=== PATIENT | female | born 1985 | race Caucasian/White ===

== ENCOUNTER 2018-04-16 08:39 | Emergency (ER) | payer SELFPAY ==
[2018-04-16 09:06] LABS: #Eosinphils 0.2 thou/uL (0.0-0.7); #Monocytes 0.6 thou/uL (0.11-0.59); #Neutrophils 3.4 thou/uL (1.40-6.50); %Basophils 0.6 % (0.0-1.0); %Eosinophils 2.5 % (0.0-10.0); %Lymphocytes 31.5 % (21.0-51.0); %Monocytes 10.2 % (0.0-10.0); %Neutrophils 55.2 % (42.0-75.0); Hemoglobin 12.2 g/dL (12.0-16.0); Mean Corpuscular HGB CONC 32.7 g/dL (32.0-36.0); Mean Corpuscular Hemoglobin 26.3 pg (27.0-31.0); Mean Corpuscular Volume 80.4 fL (78.0-98.0); Mean Platelet Volume 9.6 fL (7.4-10.4); Platelet Count 168 thou/uL (130-400); RBC Distribution Width 14.6 % (11.5-14.5); Red Blood Cell (RBC) Count 4.62 mill/uL (4.20-5.40); White Blood Cell (WBC) Count 6.2 thou/uL (4.8-10.8)
[2018-04-16 09:25] LABS: Bilirubin Negative (Negative); Blood, Urine Large (Negative); Clarity CLEAR (Clear); Glucose, Urine (Dipstick) Negative (Negative); Leukocyte Negative (Negative); Nitrite Negative (Negative); Protein, Urine (Dipstick) Negative (Neg-Trace); Specific Gravity, Urine 1.004 (1.002-1.036); Urobilinogen 0.2 mg/dL (0.2-1.0); pH, Urine 7.5 (5.0-9.0)
[2018-04-16 09:29] LABS: Bacteria/HPF None Seen HPF (None Seen); Hyaline Casts/LPF 0-3 HYALINE CAST LPF (0-3 Hyaline); Pathc Cast-AUWi Flag 0.43 (0-2.49); Squamous Epithelial 0-3 HPF (0-3); WBC/HPF None Seen HPF (0-3)
--- NOTE | 2018-04-16 10:36 | ULT ---
ULTRASOUND PELVIC ULTRASOUND TRANSVAGINAL DOPPLER DUPLEX: DATE: 04/16/18 HISTORY: Vaginal bleeding in 32-year-old female. TECHNIQUE: Transabdominal transducer used to evaluate intrapelvic contents using the urinary bladder as an acous tic window. Endovaginal transducer used to visualize intrapelvic contents in greater detail. Color fl ow Doppler and Pulsed Doppler spectral waveform analysis of ovaries. FINDINGS: Uterus: 10 x 5 x 5.5 cm. Endometrial stripe: 1.2 cm (12 mm). No evidence of intrauterine gestational sac. Right ovary: Not visualized. Left ovary: 4 x 3 x 4 cm. Uterine leiomyoma (fibroid): None. Blood flow: Demonstrated in left ovary. Ovarian cyst: 2.5 x 2.5 x 2.5 cm round left simple. Free fluid in the cul-de-sac: None. IMPRESSION: 1. No evidence of intrauterine gestation. 2. 12 mm endometrial stripe. 3. 2.5 cm simple left ovarian cyst. 4. Right ovary not visualized. ALESSIA Sanders POS: CECY
[2018-04-17 19:48] LABS: Chlamydia by PCR Not Detected (NotDetected); GC by PCR Not Detected (NotDetected)
== END 2018-04-16 10:44 | disposition home or self-care (01) ==
LOC: ERS 08:39
DX: O20.0 Threatened abortion (principal); Z3A.01 Less than 8 weeks gestation of pregnancy
CPT/HCPCS: 36415; 76856; 81003; 81015; 84702; 85025; 86900; 86901; 87480; 87491; 87510; 87591; 87660

== ENCOUNTER 2018-10-06 20:51 | Inpatient (IN) | payer BC ==
[2018-10-06] MEDS ORDERED: Docusate 100 MG CAP PO PRN (21:12)
[2018-10-06] MEDS ORDERED: NS / Oxytocin 40 units/1000ml 1,000 ML IV PRN (21:12)
[2018-10-06] MEDS ORDERED: Promethazine HCl 25 MG/ML VIAL IM PRN (21:12)
[2018-10-06] MEDS ORDERED: Lidocaine 1% (PF) 30 ML VIAL SC PRN (21:12)
[2018-10-06] MEDS ORDERED: Ibuprofen 800 MG TAB PO PRN (21:12)
[2018-10-06] MEDS ORDERED: Ondansetron PF 4 MG/2 ML Vial IVP PRN (21:12)
[2018-10-06] MEDS ORDERED: Zolpidem Tartrate 5 MG TAB PO PRN (21:12)
[2018-10-06] MEDS ORDERED: Acetaminophen 500 MG TAB PO PRN (21:12)
[2018-10-06] MEDS ORDERED: HYDROcodone/Acetaminophen 5/325 mg Tablet PO PRN ×2 (21:12)
--- NOTE | 2018-10-06 21:21 | PDOC.LDHP ---
Labor and Delivery H&P Chief complaint: other ( demise of twins (both)) HPI: 33 y/o at 16 and 2/7 weeks presents for induction of labor following demise of both twin fetuses, as diagnosed in clinic today. Patient has requested one more ultrasound upon arrival. Due date: 03/21/19 Grav: 4 Para: 2 Abnormal US findings: Yes (No heart tones x2 at 16 weeks) Current medications: pre-pati vitamins Previous surgical history: other (D&C) Social history: none - Physical Exam Vital signs reviewed and normal: yes General: NAD, resting Heart: RRR Lungs: CTAB Abdomen: gravid Extremeties: no edema - Assessment 1. Demise of both twins - 16 weeks - Plan Plan: other (1. U/S confirmation of double demise 2. Cytotec induction of labor)
[2018-10-06 21:32] VITALS: BMI 36.6
--- NOTE | 2018-10-06 22:37 | ULT ---
EXAM: US OB [facility] PROVIDED CLINICAL HISTORY: Suspected demise in twin intrauterine gestation at 16 weeks. Ultrasound exam was performed in [facility] earlier today. COMPARISON: None FINDINGS: Limited sonographic images of the pelvis are obtained. There is evidence of a twin intrauterine gesta tion. No heart tones are detected within either fetus by cardiac Doppler evaluation. Presentation of twin A and twin B transverse with the head to the maternal right. Placenta is located posteriorly. Subjectively, there is a normal amount of amniotic fluid. IMPRESSION: Twin intrauterine gestation with absence of detectable heart tones in either fetus suggesting f etal demise of a twin intrauterine gestation. Dr. Ayala was present during the examination.
[2018-10-06 22:41] LABS: Hemoglobin 11.6 g/dL (12.0-16.0); Mean Corpuscular Hemoglobin 28.5 pg (27.0-31.0); Mean Platelet Volume 9.4 fL (7.4-10.4); Platelet Count 147 thou/uL (130-400); RBC Distribution Width 14.7 % (11.5-14.5); Red Blood Cell (RBC) Count 4.08 mill/uL (4.20-5.40); White Blood Cell (WBC) Count 12.1 thou/uL (4.8-10.8)
[2018-10-06] MEDS: Misoprostol 200 MCG TAB PO SCH (22:44)
[2018-10-06 23:19] LABS: Syphilis Antibody Nonreactive (Nonreactive); Syphilis Antibody Index 0.03 S/CO (<1.00 Non-Reactive)
[2018-10-06 23:23] LABS: HBSAg Index 0.51 S/CO (0-0.99); Hep B Surf Ag Non-Reactive S/CO (NonReactive)
[2018-10-07] MEDS: Misoprostol 200 MCG TAB PO SCH ×4 (02:58→16:25)
[2018-10-07] MEDS: Butorphanol Tartrate 1 MG/ML VIAL SLOW IVP PRN ×2 (03:00→06:39)
[2018-10-07] MEDS: Lactated Ringer's 1,000 ML IV SCH ×3 (07:54→14:20)
[2018-10-07] MEDS ORDERED: Fentanyl 4 mcg/Bup 0.1% Cadd 100 ML ONE ×2 (08:33→15:54)
[2018-10-07] MEDS ORDERED: Bupivacaine 0.5% 10 ML VIAL ONE (08:53)
[2018-10-07] MEDS ORDERED: Promethazine HCl 25 MG/ML VIAL IM PRN ×3 (09:12→22:47)
[2018-10-07] MEDS ORDERED: diphenhydrAMINE 50 MG/ML VIAL IVP PRN (09:12)
[2018-10-07] MEDS ORDERED: Acetaminophen 325 MG TAB PO PRN (09:12)
[2018-10-07] MEDS ORDERED: Ondansetron PF 4 MG/2 ML Vial IVP PRN ×2 (09:12→22:47)
[2018-10-07] MEDS ORDERED: ePHEDrine/0.9% NaCl/PF SYRINGE 50 mg/10 ml SLOW IVP PRN (09:12)
[2018-10-07] MEDS ORDERED: Naloxone HCl 0.4 mg/ml Vial IVP PRN ×2 (09:12)
[2018-10-07] MEDS ORDERED: Lactated Ringer's 500 ML IV PRN (09:12)
[2018-10-07] MEDS ORDERED: Communication Order-Pharmacy FS SCH (09:15)
[2018-10-07] MEDS ORDERED: Fentanyl 4 mcg/Bupivacaine 0.1% Cassette 100 ML EPIDURAL SCH (09:15)
--- NOTE | 2018-10-07 15:27 | PDOC.LDPN ---
Labor & Delivery Progress Note - Subjective Subjective: comfortable, other (epidural is in place and working well) - Objective General: NAD, resting Uterine fundus: non tender Dilation: 1 Other exam findings: SROM has now occured Plan: continue plan of care, other (Continue Cytotec 400mcg q 4 hrs)
[2018-10-07] MEDS ORDERED: Misoprostol 200 MCG TAB ONE (15:49)
[2018-10-07] MEDS ORDERED: Oxytocin 10 UNITS/ML VIAL ONE ×2 (17:21→18:53)
[2018-10-07] MEDS ORDERED: NS w/ Oxytocin 10 units 500 ML ONE (17:21)
[2018-10-07] MEDS ORDERED: Fentanyl 100 MCG/2 ML VIAL ONE (17:47)
--- NOTE | 2018-10-07 19:41 | ULT ---
Ultrasound pelvis 10/07/2018 HISTORY: Status post D & C after intrauterine demise of twin . FINDINGS: The previously demonstrated fetuses on the ultrasound of 10/06/2018 are no longer present. The endometr ial stripe is approximately 20 mm thick. No echogenic focus or hyperemic tissue is visualized. No free fluid within the endometrial cavity. Ovaries are not visualized. Dr. Ayala was present during t he ultrasound. IMPRESSION: No definitive evidence of retained products of conception.
[2018-10-07] MEDS ORDERED: Meperidine HCl/PF 25 MG/ML VIAL ONE (19:42)
[2018-10-07] MEDS ORDERED: HYDROmorphone 2 MG/ML VIAL SLOW IVP PRN (19:53)
[2018-10-07] MEDS ORDERED: Promethazine HCl 25 MG/ML VIAL SLOW IVP PRN (19:53)
[2018-10-07] MEDS ORDERED: Morphine Sulfate 2 MG/ML SYRINGE SLOW IVP PRN (19:53)
[2018-10-07] MEDS ORDERED: Ondansetron HCl/PF 4 MG/2 ML Vial IVP PRN (19:53)
[2018-10-07] MEDS ORDERED: PACU-Morphine 4MG/ML VIAL SLOW IVP PRN (19:53)
[2018-10-07] MEDS ORDERED: Benzocaine-Menthol 82.5 ML CAN TOP PRN (22:47)
[2018-10-07] MEDS ORDERED: Lanolin Ointment 7 GM TUBE TOP PRN (22:47)
[2018-10-07] MEDS ORDERED: diphenhydrAMINE 25 MG CAP PO PRN (22:47)
[2018-10-07] MEDS ORDERED: HYDROcodone/Acetaminophen 5/325 mg Tablet PO PRN ×2 (22:47)
[2018-10-07] MEDS ORDERED: Milk Of Magnesia 30 ML UDCUP PO PRN (22:47)
[2018-10-07] MEDS ORDERED: Preparation H Ointment 28 GM TUBE PR PRN (22:47)
[2018-10-07] MEDS ORDERED: Zolpidem Tartrate 5 MG TAB PO PRN (22:47)
[2018-10-07] MEDS ORDERED: NS / Oxytocin 40 units/1000ml 1,000 ML IV SCH (22:47)
[2018-10-07] MEDS ORDERED: Bisacodyl 10 MG SUPP PR PRN (22:47)
[2018-10-07] MEDS ORDERED: Docusate Calcium (SURFAK) 240 MG CAP PO SCH (23:00)
[2018-10-07] MEDS ORDERED: Ibuprofen 800 MG TAB PO SCH (23:00)
[2018-10-07 23:58] VITALS: BP 110/57; TEMP 98.4
[2018-10-08] MEDS: Misoprostol 200 MCG TAB PO SCH ×2 (05:22→05:23)
[2018-10-08] MEDS: Lactated Ringer's 1,000 ML IV SCH (05:23)
[2018-10-08 06:24] LABS: Hemoglobin 9.9 g/dL (12.0-16.0); Mean Corpuscular HGB CONC 34.4 g/dL (32.0-36.0); Mean Corpuscular Hemoglobin 29.4 pg (27.0-31.0); Mean Corpuscular Volume 85.5 fL (78.0-98.0); Mean Platelet Volume 9.3 fL (7.4-10.4); Platelet Count 138 thou/uL (130-400); RBC Distribution Width 14.3 % (11.5-14.5); Red Blood Cell (RBC) Count 3.36 mill/uL (4.20-5.40); White Blood Cell (WBC) Count 12.1 thou/uL (4.8-10.8)
[2018-10-08] MEDS: Ibuprofen 800 MG TAB PO SCH ×2 (06:53→09:13)
[2018-10-08] MEDS ORDERED: Ferrous Sulfate 325 MG TAB PO SCH (08:00)
[2018-10-08] MEDS ORDERED: Measles/Mumps/Rubella 10 MCG/0.5 ML VIAL SC ONE ×2 (09:00→12:00)
[2018-10-08] MEDS ORDERED: Docusate Calcium (SURFAK) 240 MG CAP PO SCH (09:00)
[2018-10-08] MEDS ORDERED: Adacel (T-DAP) 0.5 ML SYRINGE IM ONE (09:00)
[2018-10-08] MEDS ORDERED: Varicella virus, LIVE 0.5 ML VIAL SC ONE ×2 (09:00→12:00)
== END 2018-10-08 12:07 | disposition home or self-care (01) | DRG 770 ==
LOC: L&D 20:51 → 3SE 10-07 23:31
PROVIDERS: ADMIT Obstetrics & Gynecology; ATTEND Obstetrics & Gynecology
PROC: 10D17ZZ Extraction of Products of Conception, Retained, Via Natural or Artificial Opening (ICD-10-PCS; principal; 2018-10-07)
DX: O02.1 Missed abortion (principal); Z3A.16 16 weeks gestation of pregnancy
CPT/HCPCS: 36415; 51702; 76815; 76856; 85027; 86780; 86850; 86900; 86901; 87340; 88300; 88305; 90707; 90715; 90716; J0595; J2175; J2590; J3010; J3490